=== PATIENT | female | born 1970 | race African-American/Black ===

== ENCOUNTER → 2017-01-17 | Outpatient (CLI) | payer BC, MEDICARE ==
--- NOTE | 2017-01-17 19:52 | EKG REPORT ---
SEVERITY:- ABNORMAL ECG - SINUS RHYTHM ABNORMAL T, CONSIDER ISCHEMIA, LATERAL LEADS : Confirmed by: Jose C Villarreal 17-Jan-2017 19:52:07
== END ==
LOC: OD 14:21
DX: Z01.810 Encounter for preprocedural cardiovascular examination (principal); M54.5 Low back pain
CPT/HCPCS: 93005; 93010

== ENCOUNTER → 2018-02-06 | Outpatient (CLI) | payer MEDICARE ==
--- NOTE | 2018-02-14 11:25 | WOMENS IMAGING REPORT ---
EXAM DESCRIPTION: 3D SCREENING MAMMO BILAT COMPLETED DATE/TIME: 02/06/2018 1:51 pm REASON FOR STUDY: SCREENING MAMMO Z12.31 ENCNTR SCREEN MAMMOGRAM FOR MALIGNANT NEOPLASM OF SUDHIR COMPARISON: 2013 TECHNIQUE: Standard craniocaudal and mediolateral oblique views of each breast recorded using digita l acquisition and breast tomosynthesis. LIMITATIONS: None. FINDINGS: Findings present which are benign by mammographic criteria. No suspicious masses, calcifi cations or architectural distortion. Pertinent benign findings: Benign dystrophic calcifications are present. Stable benign focal scarrin g from breast reduction in the right and left far upper outer quadrants. Read with the assistance of CAD. .[facility] - R2 Cenova Version 1.3 .[facility] - R2 Cenova Version 1.3 .[facility] - R2 Cenova Version 2.4 .[facility] - R2 Cenova Version 2.4 .[facility] - R2 Packaging Sales Version 9.2 Benign mammographic findings may include one or more of the following: Smooth masses, popcorn/rim/co arse calcifications, asymmetries, post-procedure changes, and lesions with long-standing stability. IMPRESSION: BENIGN MAMMOGRAPHIC FINDINGS. BIRADS 2 BREAST DENSITY: a. The breasts are almost entirely fatty. BIRAD: 2 BENIGN FINDING(S) RECOMMENDATION: RECOMMENDATION: ROUTINE SCREENING Please continue yearly bilateral screening tomosynthesis in January 2019 COMMENT: The patient has been notified of the results by letter per MQSA requirements. Additional no tification policies are in place for contacting patient with suspicious or incomplete findings. Quality ID #225: The [employer] recommends an annual screening mammogram for women aged 40 years or over. This facility utilizes a reminder system to ensure that all patients receive reminder letters, and/or direct phone calls for appointments. This includes reminders for routine scr eening mammograms, diagnostic mammograms, or other Breast Imaging Interventions when appropriate. Th is patient will be placed in the appropriate reminder system. The [employer] (ACR) has developed recommendations for screening MRI of the breast s in certain patient populations, to be used in conjunction with mammography. Breast MRI surveillanc e may be appropriate for women with more than 20% lifetime risk of developing breast cancer as deter mined by genetic testing, significant family history of the disease, or history of mantle radiation f or Hodgkins Disease. ACR Practice Guidelines 2008. DBT Technology DBT is a type of tomographic mammography. With conventional mammography, overlapping breast tissue ma y make lesions difficult to detect, even with good compression. DBT uses an x-ray tube that rotates a round the breast, taking images at different angles. These images are then combined to create thin sl ices of the breast that the radiologist can view as a 3D reconstruction. The HoloJogg unit can perform full-field digital mammograms (2D imaging); or DBT (3D imaging); or both, in a combination mode that quickly performs both the mammogram and the tomosynthesis scan while the breast is still compressed. PQRS 6045F: Fluoroscopic imaging is not utilized for breast tomosynthesis. TECHNICAL DOCUMENTATION: FINDING NUMBER: (1) ASSESSMENT: (1) JOB ID: [id number] [employer]- All Rights Reserved Reading location - IP/workstation name: [email or web address]
== END ==
LOC: WI 14:35
PROVIDERS: ATTEND Physician Assistant
DX: Z12.31 Encounter for screening mammogram for malignant neoplasm of breast (principal)
CPT/HCPCS: 77063; 77067

== ENCOUNTER 2018-04-05 08:16 | Day surgery (SDC) | payer MEDICARE ==
[2018-04-05 09:34] LABS: INTERNATIONAL RATION (INR) 1.01; PROTHROMBIN TIME 13.8 SEC (11.4-15.4)
[2018-04-05 09:35] LABS: PARTIAL THROMBOPLASTIN TIME 30.6 SEC (23.5-35.8)
[2018-04-05] MEDS ORDERED: FENTANYL CITRATE INJ/PF 100 MCG/2 ML AMPUL ONE (10:31)
--- NOTE | 2018-04-05 11:03 | RADIOLOGY REPORT (SQ) ---
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 TECHNIQUE: Axial images acquired through the cervical spine without intravenous contrast. Images re viewed with lung, soft tissue and bone windows. Reconstructed coronal and sagittal MPR images review ed. Images stored on PACS. All CT scanners at this facility use dose modulation, iterative reconstruction, and/or weight based d osing when appropriate to reduce radiation dose to as low as reasonably achievable (ALARA). [facility]: Dose Right [facility]: CareDose [facility]: Dose Right [facility]: Teradose 4D [facility]: Smart InstaJob RADIATION DOSE: CT Rad equipment meets quality standard of care and radiation dose reduction techniq ues were employed. CTDIvol: 22.0 mGy. DLP: 493 mGy-cm. mGy. LIMITATIONS: None. FINDINGS: ALIGNMENT: Mild straightening without subluxation. MINERALIZATION: Normal. VERTEBRAL BODIES: No fractures or dislocation. DISCS: No significant disc disease. FACETS, LATERAL MASSES, POSTERIOR ELEMENTS: No fractures. No dislocation. No acute findings. HARDWARE: Anterior instrumentation, fusion at C6-7. This looks intact. VISUALIZED RIBS: No fractures. LUNG APICES AND SOFT TISSUES: No significant or acute findings. OTHER: No other significant finding. IMPRESSION: Postoperative spine changes. No worrisome malalignment, fracture or bone lesion or inst rumentation failure suggested. TECHNICAL DOCUMENTATION: JOB ID: [id number] Quality ID # 436: Final reports with documentation of one or more dose reduction techniques (e.g., Au tomated exposure control, adjustment of the mA and/or kV according to patient size, use of iterative reconstruction technique) 2010 [employer]- All Rights Reserved Reading location - IP/workstation name: [email or web address]
--- NOTE | 2018-04-05 11:59 | RADIOLOGY REPORT (SQ) ---
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 TECHNIQUE: Fluoroscopic guided lumbar myelogram. LIMITATIONS: None. PROCEDURE: After written consent and assessment were obtained, the patient was brought into the fluo roscopy room and placed prone on the table. The patient's lower back was prepped in a sterile fashio n and an entry site was selected under live fluoroscopic guidance. The entry site was anesthetized wi th 5 mL of 1% lidocaine. The spinal needle was advanced through the skin and into the thecal sac at l eft paracentral L3-4 level. 10 mL of Isovue 200 M Contrast was injected into the thecal sac. Follow ing the procedure the needle was removed and a sterile bandage was placed of the site. At my direction, 75 mcg of IV fentanyl was administered during the procedure for pain control. Leonarda nuous physiologic monitoring of the patient by radiology nursing personnel. No complications post IV fentanyl for pain control. CONTRAST: 10 mL of Isovue 200 M IMAGES ACQUIRED: Prone cross-table lateral, prone, semi-erect and upright oblique and AP views, later al flexion and extension lumbar spine images Postmyelogram CT was also obtained, with sagittal coronal reconstructions through the lumbar spine. TECHNIQUE: After performing lumbar myelogram, axial images were acquired through the lumbar spine wi thout intravenous contrast. Images reviewed with lung, soft tissue and bone windows. Reconstructed coronal and sagittal MPR images reviewed. All images stored on PACS. All CT scanners at this facility use dose modulation, iterative reconstruction, and/or weight based d osing when appropriate to reduce radiation dose to as low as reasonably achievable (ALARA). [facility]: Dose Right [facility]: CareDose [facility]: Dose Right [facility]: Teradose 4D [facility]: [employer] Sales FINDINGS: SEGMENTATION: Normal. No transitional anatomy. ALIGNMENT: Normal. VERTEBRAL BODIES: No fractures. No dislocation. No acute findings. HARDWARE: Bilateral transpedicular screws and dorsal fixation plates at L4, L5, and S1. Metallic dis c spacers at L4-5 and L5-S1 There is a dorsal column stimulator, with electrodes entering the spinal canal at the L1-2 level, tanya ctrode tips at the T8-9 level. The T11-12, T12-L1, L1-2, L2-3, and L3-4 levels are unremarkable. L4-L5: Old left laminectomy. Thecal sac widely decompressed. No central or foraminal encroachment. Symmetric filling of the L4 nerve root sleeves on fluoroscopic myelographic images and CT. L5-S1: Minimal diffuse posterior disc bulging is present. Left micro laminectomy. No central or for aminal encroachment. Symmetric filling of the bilateral L5 nerve roots and bilateral proximal S1 ner ve roots on CT and fluoroscopy. PEDICLES, TRANSVERSE PROCESSES: No fractures. No dislocation. No acute findings. FACETS, POSTERIOR ELEMENTS: No fractures. No dislocation. VISUALIZED RIBS: No fractures. SOFT TISSUES: No significant or acute finding in adjacent soft tissues. OTHER: No other significant finding. IMPRESSION: Postoperative changes at L4-5 and L5-S1 without significant central or foraminal encroac hment. Good filling of the bilateral L4, L5, and S1 nerve root sleeves with contrast. COMMENT: Patient medication list reviewed: Yes- Quality ID# [id number]:Eligible professional attests to doc umenting in the medical record they obtained, updated, or reviewed the patient's current medications. TECHNICAL DOCUMENTATION: JOB ID: [id number] Quality ID # 436: Final reports with documentation of one or more dose reduction techniques (e.g., Au tomated exposure control, adjustment of the mA and/or kV according to patient size, use of iterative reconstruction technique) 2010 [employer]- All Rights Reserved Reading location - IP/workstation name: [facility]-[email or web address]
--- NOTE | 2018-04-05 11:59 | RADIOLOGY REPORT (SQ) ---
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 TECHNIQUE: Fluoroscopic guided lumbar myelogram. LIMITATIONS: None. PROCEDURE: After written consent and assessment were obtained, the patient was brought into the fluo roscopy room and placed prone on the table. The patient's lower back was prepped in a sterile fashio n and an entry site was selected under live fluoroscopic guidance. The entry site was anesthetized wi th 5 mL of 1% lidocaine. The spinal needle was advanced through the skin and into the thecal sac at l eft paracentral L3-4 level. 10 mL of Isovue 200 M Contrast was injected into the thecal sac. Follow ing the procedure the needle was removed and a sterile bandage was placed of the site. At my direction, 75 mcg of IV fentanyl was administered during the procedure for pain control. Leonarda nuous physiologic monitoring of the patient by radiology nursing personnel. No complications post IV fentanyl for pain control. CONTRAST: 10 mL of Isovue 200 M IMAGES ACQUIRED: Prone cross-table lateral, prone, semi-erect and upright oblique and AP views, later al flexion and extension lumbar spine images Postmyelogram CT was also obtained, with sagittal coronal reconstructions through the lumbar spine. TECHNIQUE: After performing lumbar myelogram, axial images were acquired through the lumbar spine wi thout intravenous contrast. Images reviewed with lung, soft tissue and bone windows. Reconstructed coronal and sagittal MPR images reviewed. All images stored on PACS. All CT scanners at this facility use dose modulation, iterative reconstruction, and/or weight based d osing when appropriate to reduce radiation dose to as low as reasonably achievable (ALARA). [facility]: Dose Right [facility]: CareDose [facility]: Dose Right [facility]: Teradose 4D [facility]: StudyTube FINDINGS: SEGMENTATION: Normal. No transitional anatomy. ALIGNMENT: Normal. VERTEBRAL BODIES: No fractures. No dislocation. No acute findings. HARDWARE: Bilateral transpedicular screws and dorsal fixation plates at L4, L5, and S1. Metallic dis c spacers at L4-5 and L5-S1 There is a dorsal column stimulator, with electrodes entering the spinal canal at the L1-2 level, tanya ctrode tips at the T8-9 level. The T11-12, T12-L1, L1-2, L2-3, and L3-4 levels are unremarkable. L4-L5: Old left laminectomy. Thecal sac widely decompressed. No central or foraminal encroachment. Symmetric filling of the L4 nerve root sleeves on fluoroscopic myelographic images and CT. L5-S1: Minimal diffuse posterior disc bulging is present. Left micro laminectomy. No central or for aminal encroachment. Symmetric filling of the bilateral L5 nerve roots and bilateral proximal S1 ner ve roots on CT and fluoroscopy. PEDICLES, TRANSVERSE PROCESSES: No fractures. No dislocation. No acute findings. FACETS, POSTERIOR ELEMENTS: No fractures. No dislocation. VISUALIZED RIBS: No fractures. SOFT TISSUES: No significant or acute finding in adjacent soft tissues. OTHER: No other significant finding. IMPRESSION: Postoperative changes at L4-5 and L5-S1 without significant central or foraminal encroac hment. Good filling of the bilateral L4, L5, and S1 nerve root sleeves with contrast. COMMENT: Patient medication list reviewed: Yes- Quality ID# [id number]:Eligible professional attests to doc umenting in the medical record they obtained, updated, or reviewed the patient's current medications. TECHNICAL DOCUMENTATION: JOB ID: [id number] Quality ID # 436: Final reports with documentation of one or more dose reduction techniques (e.g., Au tomated exposure control, adjustment of the mA and/or kV according to patient size, use of iterative reconstruction technique) 2010 [employer]- All Rights Reserved Reading location - IP/workstation name: [email or web address]
[2018-04-05 15:25] VITALS: BP 105/66
== END 2018-04-05 13:40 | disposition home or self-care (01) ==
LOC: RAD 08:16
PROVIDERS: ATTEND Specialist
DX: M54.16 Radiculopathy, lumbar region (principal); Z79.01 Long term (current) use of anticoagulants; M54.13 Radiculopathy, cervicothoracic region; Z88.5 Allergy status to narcotic agent
CPT/HCPCS: 36415; 85610; 85730; 72265; 72125; 72132; J3010

== ENCOUNTER 2018-07-17 06:25 | Day surgery (SDC) | payer MEDICARE ==
[2018-07-16 11:26] LABS: HEMATOCRIT 39.4 % (36.0-47.0); HEMOGLOBIN 13.1 g/dL (12.0-15.5); MEAN CORPUSCULAR HEMOGLOBIN 30.8 pg (27.0-33.4); MEAN CORPUSCULAR HGB CONC 33.2 g/dL (32.0-36.0); MEAN CORPUSCULAR VOLUME 93 fl (80-97); PLATELET COUNT 214 10^3/uL (150-450); RED BLOOD COUNT 4.25 10^6/uL (3.72-5.28); RED CELL DISTRIBUTION WIDTH 13.3 % (11.5-14.0); WHITE BLOOD COUNT 4.6 10^3/uL (4.0-10.5)
[2018-07-16 11:32] LABS: PARTIAL THROMBOPLASTIN TIME 30.1 SEC (23.5-35.8); PROTHROMBIN TIME 13.7 SEC (11.4-15.4)
[2018-07-16 11:38] LABS: APPEARANCE,URINE SLIGHTLY-CLOUDY; BILIRUBIN,URINE NEGATIVE (NEGATIVE); COLOR,URINE YELLOW; GLUCOSE, URINE NEGATIVE (NEGATIVE); KETONES,URINE NEGATIVE (NEGATIVE); LEUKOCYTE ESTERASE,URINE NEGATIVE (NEGATIVE); NITRITE,URINE NEGATIVE (NEGATIVE); PROTEIN,URINE 30 mg/dL (NEGATIVE); URINE SPECIFIC GRAVITY 1.013; UROBILINOGEN,URINE NEGATIVE mg/dL (<2.0)
--- NOTE | 2018-07-16 12:00 | RADIOLOGY REPORT (SQ) ---
EXAM DESCRIPTION: CHEST PA/LATERAL COMPLETED DATE/TIME: 07/16/2018 11:40 am REASON FOR STUDY: PRE-OP COMPARISON: 12/05/2013 EXAM PARAMETERS: NUMBER OF VIEWS: two views TECHNIQUE: Digital Frontal and Lateral radiographic views of the chest acquired. RADIATION DOSE: NA LIMITATIONS: none FINDINGS: LUNGS AND PLEURA: No opacities, masses or pneumothorax. No pleural effusion. MEDIASTINUM AND HILAR STRUCTURES: No masses or contour abnormalities. HEART AND VASCULAR STRUCTURES: Heart normal size. No evidence for failure. BONES: No acute findings. HARDWARE: Thoracic neurostimulator. OTHER: No other significant finding. IMPRESSION: NO SIGNIFICANT RADIOGRAPHIC FINDING IN THE CHEST. TECHNICAL DOCUMENTATION: JOB ID: [id number] [employer]- All Rights Reserved Reading location - IP/workstation name: [email or web address]
--- NOTE | 2018-07-17 00:16 | EKG REPORT ---
SEVERITY:- ABNORMAL ECG - SINUS RHYTHM BORDERLINE LEFT AXIS DEVIATION NONSPECIFIC T ABNORMALITIES, ANT-LAT LEADS : Confirmed by: Jose C Villarreal 17-Jul-2018 00:15:12
[~2018-07-17 06:25] MED LIST: CEFAZOLIN 1 GM/D5W RTU 1 GM/50 ML RTUPB IV ONE
[2018-07-17] MEDS ORDERED: FENTANYL CITRATE INJ/PF 100 MCG/2 ML AMPUL ONE ×2 (06:43→07:41)
[2018-07-17] MEDS ORDERED: LIDOCAINE 2% INJ-PF (20 MG/ML) 10 ML AMPUL ONE (06:43)
[2018-07-17] MEDS ORDERED: PROPOFOL INJ 200 MG/20 ML VIAL IV ONE (06:44)
[2018-07-17] MEDS ORDERED: ONDANSETRON HCL INJ/PF 4 MG/2 ML SDV ONE (06:44)
[2018-07-17] MEDS ORDERED: MIDAZOLAM 2 MG/2 ML INJ ONE ×3 (06:44→09:27)
[2018-07-17] MEDS ORDERED: BUPIVACAINE HCL 0.25 % INJ/PF (2.5 MG/1 ML) 30 ML VIAL ONE (06:48)
[2018-07-17] MEDS ORDERED: LIDOCAINE 1% INJ-PF (10 MG/ML) 30 ML SDV ONE ×2 (06:48→06:49)
[2018-07-17] MEDS ORDERED: BUPIVACAINE HCL 0.5%-EPI 1:200000 INJ/PF 30 ML VIAL ONE (06:51)
[2018-07-17] MEDS ORDERED: SODIUM BICARBONATE 8.4% INJ 50 MEQ/50 ML DISP.SYRIN ONE (07:43)
[2018-07-17] MEDS ORDERED: MORPHINE SULFATE 10 MG/ML INJ ONE (07:54)
[2018-07-17] MEDS ORDERED: HYDROMORPHONE HCL INJ/PF 2 MG/ML AMPULE ONE (07:55)
[2018-07-17] MEDS: CEFAZOLIN 1 GM/D5W RTU 1 GM/50 ML RTUPB IV PRN ×2 (08:00→09:14)
[2018-07-17] MEDS ORDERED: MEPERIDINE HCL/PF INJ 25 MG/1 ML DISP.SYRIN IV PRN (09:13)
[2018-07-17] MEDS ORDERED: DIPHENHYDRAMINE HCL 50 MG/ML VIAL IV PRN (09:13)
[2018-07-17] MEDS ORDERED: FENTANYL CITRATE INJ/PF 100 MCG/2 ML AMPUL IV PRN ×3 (09:13)
[2018-07-17] MEDS ORDERED: PROMETHAZINE HCL INJ 25 MG/1 ML VIAL IV PRN ×2 (09:13)
[2018-07-17] MEDS ORDERED: MORPHINE SULFATE 10 MG/ML INJ IV PRN (09:13)
[2018-07-17] MEDS ORDERED: ONDANSETRON HCL INJ/PF 4 MG/2 ML SDV IV PRN (09:22)
[2018-07-17] MEDS ORDERED: CEFAZOLIN INJ 1 GM VIAL ONE (09:22)
[2018-07-17] MEDS ORDERED: HYDROMORPHONE HCL 2 MG TABLET PO PRN (09:22)
[2018-07-17] MEDS: HYDROMORPHONE HCL INJ/PF 2 MG/ML AMPULE ONE ×2 (09:25→09:40)
[2018-07-17] MEDS ORDERED: HYDROMORPHONE HCL 2 MG TABLET ONE (10:32)
[2018-07-17 11:37] VITALS: BP 116/72
--- NOTE | 2018-07-17 12:42 | OPERATIVE REPORT E ---
Operative Report NAME: KEITH HILDA : 1970 AGE: 47Y DATE OF SURGERY: 07/17/2018 ROOM: PREOPERATIVE DIAGNOSIS: End of life of implantable pulse generator. POSTOPERATIVE DIAGNOSIS: End of life of implantable pulse generator. OPERATION: Replacement of implantable pulse generator and revision of battery pocket. COMPLICATIONS: None. SURGEON: AGUEDA COSTA M.D. ESTIMATED BLOOD LOSS: 5 mL INTRAVENOUS FLUIDS: 500 mL crystalloid. PREOPERATIVE ANTIBIOTICS: 1 gram Ancef given prior to incision. ANESTHESIA: MAC sedation. INDICATIONS: The patient is a 47-year-old female with indwelling spinal cord stimulator device. She has experienced end of battery life and her battery is not retaining charge. As such, it was determined that her battery needed to be replaced. Risks and benefits were discussed with the patient at length including but not limited to bleeding, bruising, infection, injury to nerves, need for revision of leads should there be any damage to leads during the procedure. The patient expressed understanding and agreed to proceed. PROCEDURE: The patient was accompanied by Anesthesia to the operative suite, where she was placed in prone position. All pressure points were checked and padded. Standard ASA lines and monitors were applied. Timeout protocol was performed as per [facility] standards. The patient was prepped and draped in sterile fashion using chlorhexidine gluconate solution and a drape. The patient's previous incision site was marked. The skin was anesthetized with 1% buffered lidocaine. A deep incision was infiltrated with 0.25% Marcaine with 1:[id number] epinephrine. Incision was made using a 15 blade scalpel. The pocket was opened and the battery was visualized. The battery was delivered from the pocket. The pocket was then extended superiorly for patient preference of having battery in higher position. Great care was taken to do this in a blunt fashion so that there was no interruption of the leads. The bottom part of the pocket was closed using 3-0 Vicryl to affix top to bottom of the pocket. The leads were removed from the old battery and placed into the new battery and sequenced. The [employer] data entry representative was in the room to test leads, and found all impedances to be excellent. At this point, the pocket was copiously irrigated with dilute Betadine solution. The implantable pulse generator was placed back into the pocket and the incision was closed with 3-0 Vicryl in interrupted fashion. Skin was then closed with Dermabond tape, and glue. Dressings were placed. The patient was accompanied by anesthesia staff to the post anesthesia recovery unit in good condition. She will be discharged to home and will have followup with pain management within 24 hours. DICTATING PHYSICIAN: AGUEDA COSTA M.D. [id number] PHY#: [id number] ID: [id number] JOB#: [id number] ACCT: [id number] cc:AGUEDA COSTA M.D. > MTDD
[2018-07-17] MEDS ORDERED: CEFAZOLIN 1 GM/D5W RTU 1 GM/50 ML RTUPB IV SCH (18:00)
== END 2018-07-17 11:25 | disposition home or self-care (01) ==
LOC: OROUT 06:25
PROVIDERS: ATTEND Pain Medicine Interventional Pain Medicine
DX: G89.4 Chronic pain syndrome (principal); Z79.01 Long term (current) use of anticoagulants; Z88.5 Allergy status to narcotic agent; M06.9 Rheumatoid arthritis, unspecified; E07.9 Disorder of thyroid, unspecified; D57.3 Sickle-cell trait
CPT/HCPCS: 93005; 36415; 85027; 85610; 85730; 81001; 71046; 93010; 63685; 63650; C1820; J2250; J3490 ×4; J0690 ×2; J3010; A9270; J1170; J2405; J2704; 300; J2270

== ENCOUNTER 2018-09-23 12:11 | Emergency (ER) | payer MEDICARE ==
[2018-09-23] MEDS ORDERED: KETOROLAC TROMETHAMINE INJ/PF 30 MG/1 ML SDV IV ONE (13:27)
[2018-09-23] MEDS ORDERED: HYDROMORPHONE HCL INJ/PF 2 MG/ML AMPULE IV ONE (13:27)
[2018-09-23] MEDS ORDERED: METHOCARBAMOL 500 MG TABLET PO ONE (13:28)
[2018-09-23] MEDS ORDERED: LIDOCAINE 5% (700 MG) TRANSDERMAL ADH..PATCH TP ONE (13:28)
--- NOTE | 2018-09-23 13:30 | ER Document Report ---
HPI - HPI Patient complains to provider of: Right shoulder, neck pain Time Seen by Provider: 09/23/18 12:38 Onset: Other - 5 days Onset/Duration: Worse Quality of pain: Sharp Pain Level: 4 Context: Patient presents complaining of right shoulder and right lateral neck pain for the past 5 days. Patient does have a history of a rotator cuff injury to the right shoulder that she was supposed to have surgery to repair but never did. Patient denies any recent injury or fever. Patient states that she has chronic back pain and takes medicine for her chronic back pain although she has not had any of her pain medications today. Patient did see her pain management doctor for her shoulder complaint 4 days ago and was given a Toradol and lidocaine injection and a prescription for an anti-inflammatory medication. Patient did have outpatient x-rays performed. Patient was advised that if she had any persistent pain to come to the ER for further evaluation. Associated Symptoms: Other - Right lateral neck pain, right shoulder pain. denies: Fever, Headache Exacerbated by: Movement Relieved by: Remaining still Similar symptoms previously: No Recently seen / treated by doctor: Yes - ROS ROS below otherwise negative: Yes Systems Reviewed and Negative: Yes All other systems reviewed and negative - CONSTITUTIONAL Constitutional: DENIES: Fever, Chills - NEURO Neurology: DENIES: Headache, Weakness - GASTROINTESTINAL Gastrointestinal: DENIES: Nausea - REPRODUCTIVE Reproductive: DENIES: : - MUSCULOSKELETAL Musculoskeletal: REPORTS: Extremity pain - R shoulder, Neck Pain. DENIES: Swelling - DERM Skin Color: Normal Skin Problems: None Past Medical History - General Information source: Patient - Social History Smoking Status: Never Smoker Chew tobacco use (# tins/day): No Frequency of alcohol use: None Drug Abuse: None Occupation: None Lives with: Family Family History: None Patient has suicidal ideation: No Patient has homicidal ideation: No - Past Medical History Cardiac Medical History: Reports: Hx Atrial Fibrillation Neurological Medical History: Reports: Hx Migraine, Hx Seizures - WITH MIGRAINE- LAST EPISODE 8YRS AGO. Denies: Hx Cerebrovascular Accident Endocrine Medical History: Reports: Hx Hyperthyroidism Renal/ Medical History: Denies: Hx Peritoneal Dialysis GI Medical History: Reports: Hx Gastroesophageal Reflux Disease Musculoskeletal Medical History: Reports Hx Arthritis - RA, DJD, Reports Hx Fibromyalgia Past Surgical History: Reports: Hx Breast Surgery - reduction, Hx Section - x3, Hx Hysterectomy, Hx Orthopedic Surgery - 6 back, 2 spinal simulators. - Immunizations Hx Diphtheria, Pertussis, Tetanus Vaccination: Yes Hx Pneumococcal Vaccination: 07/03/14 Vertical Provider Document - CONSTITUTIONAL Agree With Documented VS: Yes Exam Limitations: No Limitations General Appearance: WD/WN - INFECTION CONTROL TRAVEL OUTSIDE OF THE [place] IN LAST 30 DAYS: No - HEENT HEENT: Atraumatic, Normocephalic - NECK Neck: Supple, Other - Right trapezius muscle tenderness with spasm, tenderness increases with lateral rotation of head. negative: Lymphadenopathy-Left, Lymphadenopathy-Right - RESPIRATORY Respiratory: Breath Sounds Normal, No Respiratory Distress - CARDIOVASCULAR Cardiovascular: Regular Rate, Regular Rhythm Pulses: Normal: Radial - BACK Back: Abnormal Inspection - Left trapezius muscle tenderness with spasm - MUSCULOSKELETAL/EXTREMETIES Musculoskeletal/Extremeties: MAEW, FROM, Tender - Tenderness over superior aspect of right humeral head, tenderness increases with abduction of the shoulder. No dislocation, no deformity. Normal skin color and temperature overlying joint. Patient with full passive range of motion - NEURO Level of Consciousness: Awake, Alert, Appropriate Motor/Sensory: No Motor Deficit, No Sensory Deficit - DERM Integumentary: Warm, Dry, No Rash Course - Re-evaluation Re-evalutation: 09/23/18 14:52 Patient reports that her shoulder is feeling better after medications and the sling application. Patient advised that a prescription for muscle relaxer would be written that she can take instead of the Flexeril but not to take both of those medications together. Patient encouraged to follow-up with her orthopedic doctor for recheck. Patient verbalized understanding and agrees with plan of care. - Vital Signs Vital signs: Temp Pulse Resp BP Pulse Ox 98.2 F 63 16 131/68 H 98 09/23/18 12:25 09/23/18 12:25 09/23/18 12:25 09/23/18 12:25 09/23/18 12:25 Procedures - Immobilization Right Shoulder Pre-Proc Neuro Vasc Exam: Normal Immobilizer type: Sling Performed by: PCT Post-Proc Neuro Vasc Exam: Normal Alignment checked and good: Yes Discharge - Discharge Clinical Impression: Trapezius muscle strain Qualifiers: Encounter type: initial encounter Laterality: right Qualified Code(s): S46.811A - Strain of other muscles, fascia and tendons at shoulder and upper arm level, right arm, initial encounter Right shoulder pain Qualifiers: Chronicity: unspecified Qualified Code(s): M25.511 - Pain in right shoulder Condition: Stable Disposition: HOME, SELF-CARE Instructions: Muscle Relaxers ([facility]), Muscle Strain ([facility]), Shoulder Injury ([facility]) Additional Instructions: Return immediately for any new or worsening symptoms Followup with your primary care provider, call tomorrow to make a followup appointment Follow-up with your orthopedic doctor for recheck Wear sling while awake only for the next 3-4 days and then remove. Perform gentle range of motion exercises at least daily. Prescriptions: Methocarbamol [Robaxin 500 Mg Tablet] 500 mg PO QID PRN #20 tablet PRN Reason: Referrals: JAY FRANK PA-C [Primary Care Provider] - Follow up as needed
[2018-09-23 15:14] VITALS: BP 127/87
== END 2018-09-23 15:27 | disposition home or self-care (01) ==
LOC: ER 12:11
DX: S29.012A Strain of muscle and tendon of back wall of thorax, initial encounter (principal); X58.XXXA Exposure to other specified factors, initial encounter; M25.511 Pain in right shoulder; M54.2 Cervicalgia; M62.830 Muscle spasm of back; M54.9 Dorsalgia, unspecified; G89.29 Other chronic pain; Z79.899 Other long term (current) drug therapy
CPT/HCPCS: 99283; 96374; 96375; A9270; J1885; J1170

== ENCOUNTER 2019-07-17 08:08 | Day surgery (SDC) | payer MEDICARE ==
[2019-07-17 09:32] LABS: INTERNATIONAL RATION (INR) 1.05; PROTHROMBIN TIME 13.7 SEC (11.4-15.4)
[2019-07-17 09:34] LABS: PARTIAL THROMBOPLASTIN TIME 28.9 SEC (23.5-35.8)
[2019-07-17] MEDS ORDERED: FENTANYL CITRATE INJ/PF 100 MCG/2 ML AMPUL ONE (10:46)
--- NOTE | 2019-07-17 13:41 | RADIOLOGY REPORT (SQ) ---
EXAM DESCRIPTION: CT CERVICAL SPINE WITH COMPLETED DATE/TIME: 07/17/2019 11:51 am REASON FOR STUDY: RADICULOPATHY CERVICAL REGION M54.12 RADICULOPATHY, CERVICAL REGION Z79.01 CUSTODIAL (CURRENT) USE OF ANTICOAGULANTS COMPARISON: Fluoroscopic myelogram images same date CT cervical spine without contrast 04/05/2018 TECHNIQUE: POSTMYELOGRAM Axial images acquired through the cervical spine without intravenous contra st. Images reviewed with lung, soft tissue and bone windows. Reconstructed coronal and sagittal MPR images reviewed. Images stored on PACS. All CT scanners at this facility use dose modulation, iterative reconstruction, and/or weight based d osing when appropriate to reduce radiation dose to as low as reasonably achievable (ALARA). [facility]: Dose Right [facility]: CareDose [facility]: Dose Right [facility]: Teradose 4D [facility]: Smart FreeDrive RADIATION DOSE: CT Rad equipment meets quality standard of care and radiation dose reduction techniq ues were employed. CTDIvol: 24.5 mGy. DLP: 584 mGy-cm. mGy. LIMITATIONS: None. FINDINGS: ALIGNMENT: Straightening of cervical lordosis MINERALIZATION: Normal. VERTEBRAL BODIES: No fractures or dislocation. DISCS: Postmyelogram Craniocervical junction, C1-2, C2-3, C3-4, C4-5 are unremarkable. No central or foraminal stenosis. Good filling of the cervical nerve root sleeves at these levels. Mild right-sided C4-5 facet arthro jaziel. At C5-6, minimal right paracentral disc bulge and bony spurring is present without significant centra l or foraminal stenosis. Symmetric nerve root sleeve filling on CT At C6-7, patient is post discectomy and fusion, with disc space bone graft and anterior fixation plat e with anchoring screws in the C6 and C7 vertebral bodies. No lucency around the hardware worrisome for loosening. There is incorporation of bone graft at the disc space. . No significant central or foraminal stenosis. Symmetric nerve root sleeve filling on CT. At C7-T1, no significant central or foraminal stenosis is present. Symmetric nerve root sleeve filli ng. FACETS, LATERAL MASSES, POSTERIOR ELEMENTS: No fractures. No dislocation. No acute findings. HARDWARE: Post fusion at C6-7 VISUALIZED RIBS: No fractures. LUNG APICES AND SOFT TISSUES: No significant or acute findings. OTHER: No other significant finding. IMPRESSION: No significant central or foraminal encroachment. TECHNICAL DOCUMENTATION: JOB ID: [id number] Quality ID # 436: Final reports with documentation of one or more dose reduction techniques (e.g., Au tomated exposure control, adjustment of the mA and/or kV according to patient size, use of iterative reconstruction technique) 2010 [employer]- All Rights Reserved Reading location - IP/workstation name: [email or web address]
--- NOTE | 2019-07-17 13:43 | RADIOLOGY REPORT (SQ) ---
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 TECHNIQUE: Fluoroscopic guided lumbar myelogram. LIMITATIONS: None. PROCEDURE: After written consent and assessment were obtained, the patient was brought into the fluo roscopy room and placed prone on the table. The patient's lower back was prepped in a sterile fashio n and an entry site was selected under live fluoroscopic guidance. The entry site was anesthetized wi th 1% lidocaine. The spinal needle was advanced through the skin and into the thecal sac at the left paracentral L2-3 level. Contrast was injected into the thecal sac. Following the procedure the nee dle was removed and a sterile bandage was placed of the site. CONTRAST: 10 mL Omnipaque 300. IMAGES ACQUIRED: Prone oblique and prone PA fluoroscopic digital images, prone cross-table lateral ce rvical spine digital radiograph FINDINGS: Contrast is present in the thecal sac. Patient is post fusion at C6-7. No myelographic block. No significant central stenosis. Fluoroscopic images demonstrate no significant truncation of filling of cervical nerve root sleeves. IMPRESSION: CERVICAL MYELOGRAM PERFORMED FOR CT MYELOGRAPHY. PLEASE REFER TO THE REPORT OF THE CT M YELOGRAM FOR DETAILED DIAGNOSTIC EVALUATION. COMMENT: Patient medication list reviewed: Yes- Quality ID# 130:Eligible professional attests to doc umenting in the medical record they obtained, updated, or reviewed the patient's current medications. . Quality ID 145: Final reports for procedures using fluoroscopy that document radiation exposure blade vale, or exposure time and number of fluorographic images (if radiation exposure indices are not avail able) TECHNICAL DOCUMENTATION: JOB ID: [id number] [employer]- All Rights Reserved Reading location - IP/workstation name: [email or web address]
[2019-07-17 15:07] VITALS: BP 132/67
== END 2019-07-17 15:09 | disposition home or self-care (01) ==
LOC: RAD 08:08
PROVIDERS: ATTEND Specialist
DX: M54.12 Radiculopathy, cervical region (principal); Z79.01 Long term (current) use of anticoagulants
CPT/HCPCS: 36415; 85610; 85730; 72240; 72126; J3010

== ENCOUNTER → 2020-04-15 | Outpatient (CLI) | payer MEDICARE ==
--- NOTE | 2020-04-15 12:19 | WOMENS IMAGING REPORT ---
EXAM DESCRIPTION: 3D SCREENING MAMMO BILAT IMAGES COMPLETED DATE/TIME: 04/15/2020 10:28 am REASON FOR STUDY: Z12.31 ENCOUNTER FOR SCREENING MAMMOGRAM FOR MALIGNANT NEOPLASM OF BREAST Z12.31 ENCNTR SCREEN MAMMOGRAM FOR MALIGNANT NEOPLASM OF SUDHIR COMPARISON: 02/06/2018. EXAM PARAMETERS: Standard craniocaudal and mediolateral oblique views of each breast recorded using digital acquisition and breast tomosynthesis. Read with the assistance of CAD. .[facility] Version 9.2 LIMITATIONS: None. FINDINGS: Findings present which are benign by mammographic criteria. No suspicious masses, calcific ations or architectural distortion. Pertinent benign findings: Surgical changes and benign calcifications. Benign mammographic findings may include one or more of the following: Smooth masses, popcorn/rim/coa rse calcifications, asymmetries, post-procedure changes, and lesions with long-standing stability. IMPRESSION: BENIGN MAMMOGRAPHIC FINDINGS. BIRADS 2 BREAST DENSITY: a. The breasts are almost entirely fatty. BIRAD: ASSESSMENT: 2 BENIGN FINDING(S) RECOMMENDATION: ROUTINE SCREENING COMMENT: The patient has been notified of the results by letter per SA requirements. Additional no tification policies are in place for contacting patient with suspicious or incomplete findings. Quality ID #225: The [employer] recommends an annual screening mammogram for women aged 40 years or over. This facility utilizes a reminder system to ensure that all patients receive reminder letters, and/or direct phone calls for appointments. This includes reminders for routine scr eening mammograms, diagnostic mammograms, or other Breast Imaging Interventions when appropriate. Th is patient will be placed in the appropriate reminder system. TECHNICAL DOCUMENTATION: FINDING NUMBER: (1) ASSESSMENT: (1) JOB ID: [id number] 2010 [employer]- All Rights Reserved Reading location - IP/workstation name: [email or web address]
== END ==
LOC: WI 10:01
PROVIDERS: ATTEND Physician Assistant
DX: Z12.31 Encounter for screening mammogram for malignant neoplasm of breast (principal)
CPT/HCPCS: 77063; 77067

== ENCOUNTER 2020-07-15 13:00 | Day surgery (SDC) | payer MEDICARE ==
--- NOTE | 2020-07-15 14:34 | RADIOLOGY REPORT (SQ) ---
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 TECHNIQUE: Axial imaging performed through the rightshoulder with reformatted oblique coronal and ob lique sagittal imaging windowed for bone and soft tissues. All CT scanners at this facility use dose modulation, iterative reconstruction, and/or weight based d osing when appropriate to reduce radiation dose to as low as reasonably achievable (ALARA). [facility]: Dose Right [facility]: CareDose [facility]: Dose Right [facility]: Teradose 4D [facility]: Smart Simplify RADIATION DOSE: CT Rad equipment meets quality standard of care and radiation dose reduction techniq ues were employed. CTDIvol: 37.0 mGy. DLP: 1059 mGy-cm. mGy. LIMITATIONS: Small amount of extravasation. FINDINGS: No contrast in the subacromial bursa. Cuff musculature is symmetric. No significant cuff tear is identified. Labrum unremarkable. Distal biceps intact. Mild AC joint arthropathy. Lungs are clear. IMPRESSION: No significant tear identified. TECHNICAL DOCUMENTATION: JOB ID: [id number] Quality ID # 436: Final reports with documentation of one or more dose reduction techniques (e.g., Au tomated exposure control, adjustment of the mA and/or kV according to patient size, use of iterative reconstruction technique) 2010 [employer] All Rights Reserved Reading location - IP/workstation name: [email or web address]
--- NOTE | 2020-07-15 14:40 | RADIOLOGY REPORT (SQ) ---
EXAM DESCRIPTION: ARTHRO SHOULDER INJECTION; FLUORO/NEEDLE PLACEMENT IMAGES COMPLETED DATE/TIME: 07/15/2020 1:44 pm REASON FOR STUDY: (M75.41)IMPINGEMENT SYNDROME OF RIGHT SHOULDER M75.41 IMPINGEMENT SYNDROME OF RIG HT SHOULDER COMPARISON: None. FLUOROSCOPY TIME: 0.4 minutes of fluoroscopy was used. 1 images saved to PACS. LIMITATIONS: None. PROCEDURE: Procedure, risks, benefits and alternative explained to patient who then gave written con sent. The right shoulder was marked and a time-out was called for correct marking verification. Pos terior entry site marked using fluoroscopic guidance. Shoulder prepped and draped using solar installation technician nique. Local anesthesia achieved using 1% lidocaine injection. 22 gauge spinal needle introduced int o the joint space under direct fluoroscopic visualization. Non-ionic contrast instilled to confirm i ntra-articular position. Additional dilute non-ionic contrast instilled. Needle removed and entry s ite covered with sterile bandage. No immediate complications noted. TECHNIQUE: Digital images acquired during fluoroscopy and stored on PACS. Patient immediately take n to the CT suite for additional imaging. INJECTION LOCATION: Posterior right shoulder. CONTRAST TYPE AND AMOUNT: 10 mL Omnipaque saline mixture IMPRESSION: SUCCESSFUL NEEDLE PLACEMENT AND INJECTION FOR RIGHT SHOULDER CT ARTHROGRAM USING POSTERI OR APPROACH. COMMENT: Quality ID 145: Final reports for procedures using fluoroscopy that document radiation exp osure indices, or exposure time and number of fluorographic images (if radiation exposure indices are not available) TECHNICAL DOCUMENTATION: JOB ID: [id number] 2010 [facility]- All Rights Reserved Reading location - IP/workstation name: [email or web address] [id number]
--- NOTE | 2020-07-15 14:40 | RADIOLOGY REPORT (SQ) ---
EXAM DESCRIPTION: ARTHRO SHOULDER INJECTION; FLUORO/NEEDLE PLACEMENT IMAGES COMPLETED DATE/TIME: 07/15/2020 1:44 pm REASON FOR STUDY: (M75.41)IMPINGEMENT SYNDROME OF RIGHT SHOULDER M75.41 IMPINGEMENT SYNDROME OF RIG HT SHOULDER COMPARISON: None. FLUOROSCOPY TIME: 0.4 minutes of fluoroscopy was used. 1 images saved to PACS. LIMITATIONS: None. PROCEDURE: Procedure, risks, benefits and alternative explained to patient who then gave written con sent. The right shoulder was marked and a time-out was called for correct marking verification. Pos terior entry site marked using fluoroscopic guidance. Shoulder prepped and draped using generation engineering technologist nique. Local anesthesia achieved using 1% lidocaine injection. 22 gauge spinal needle introduced int o the joint space under direct fluoroscopic visualization. Non-ionic contrast instilled to confirm i ntra-articular position. Additional dilute non-ionic contrast instilled. Needle removed and entry s ite covered with sterile bandage. No immediate complications noted. TECHNIQUE: Digital images acquired during fluoroscopy and stored on PACS. Patient immediately take n to the CT suite for additional imaging. INJECTION LOCATION: Posterior right shoulder. CONTRAST TYPE AND AMOUNT: 10 mL Omnipaque saline mixture IMPRESSION: SUCCESSFUL NEEDLE PLACEMENT AND INJECTION FOR RIGHT SHOULDER CT ARTHROGRAM USING POSTERI OR APPROACH. COMMENT: Quality ID 145: Final reports for procedures using fluoroscopy that document radiation exp osure indices, or exposure time and number of fluorographic images (if radiation exposure indices are not available) TECHNICAL DOCUMENTATION: JOB ID: [id number] 2010 [employer]- All Rights Reserved Reading location - IP/workstation name: [email or web address] [id number]
== END 2020-07-15 14:00 | disposition home or self-care (01) ==
LOC: RAD 13:00
PROVIDERS: ATTEND Orthopaedic Surgery
DX: M75.41 Impingement syndrome of right shoulder (principal); M75.81 Other shoulder lesions, right shoulder
CPT/HCPCS: 23350; 77002